=== PATIENT | male | born 1960 | race Caucasian/White ===

== ENCOUNTER 2019-12-28 01:49 | Inpatient (IN) | payer SELFPAY ==
[~2019-12-28] VITALS: Ht 193 cm; Wt 150.0 kg
[2019-12-28] VITALS (7 sets, daily range): BP systolic 118–170; BP diastolic 72–101; Ht 193 cm; Wt 150.0 kg
--- NOTE | ~2019-12-28 | HEMODYNAMI ---
PATIENT:ANNIA SCHMITT MEDICAL RECORD: [id number] : 56 LOCATION:[facility] D.2117 ADMISSION DATE: 12/28/19 Generatedon:12/28/201915:13 Patient name: ANNIA SCHMITT Patient #: [id number] SSN: [id number] B: 1960 Date of study: 12/28/2019 Page: Of Hemodynamic Procedure Report Patient Data Patient Demographics Procedure consent was obtained First Name: ANNIA Gender: Male Last Name: OSKAR : 1960 Patient #: [id number] Age: 59 year(s) Race: Unknown Additional ID: [id number] Contact details Address: [address] [place] [address] State: [place] City: [place] Zip code: [address] Past Medical History History of disease Date Diagnosis Comments CAD Allergies: No known allergies Admission Admission Data Admission Date: 12/28/2019 Admission Time: 3:00 Arrival Date: 12/28/2019 Arrival Time: 0:00 Room #: D.2117 Height (in.): 75.98 BSA: 2.74 (m2) Height (cm.): 193 BMI: 40.27 (kg/m2) Weight (lbs.): 330.7 Weight (kg.): 150 Lab Results Lab Result Date: 12/28/2019 Lab Result Time: 0:00 Biochemistry Name Units Result Min Max BUN mg/dl 18 --(---*)-- 7 18 Creatinine mg/dl 1.2 --(---*)-- 0.6 1.3 eGFR ml/min 64.31838 *-(----)-- 90 120 NONAFRICAN CBC Name Units Result Min Max Hematocrit % 44.9 --(*---)-- 42 54 Hemoglobin g/dl 14.7 --(-*--)-- 13.5 17.5 Procedure Procedure Types Cath Procedure Diagnostic Procedure LHC LHC w/Coronaries w/Grafts Sedation Charges Moderate Sedation up to 45 minutes PCI Procedure Coronary Stent Coronary Stent Initial Hemochron ACT Test Procedure Description Procedure Date Procedure Date: 12/28/2019 Procedure Start Time: 14:28 Procedure End Time: 15:10 Procedure Staff Name Function Jorge L Madison MD Performing Physician Shelia Stewart RT Monitor Miya High RT Scrub Selina Espinosa RN Nurse Procedure Data Cath Procedure Fluoroscopy Diagnostic fluoroscopy Total fluoroscopy Time: time: 10.1 min 10.1 min Diagnostic fluoroscopy Total fluoroscopy dose: dose: 2760 mGy 2760 mGy Contrast Material Contrast Material Type Amount (ml) Isovue 300 198 Entry Location Entry Primary Successful Side Size Upsize 1 Upsize Entry Closure Bowie ccessful Closure Location (Fr) (Fr) 2 (Fr) Remarks Device Remarks Femoral Right 5 Fr 6 Fr 6 Fr Exoseal artery Mid-Length Short Estimated blood loss: 10 ml Diagnostic catheters Device Type Used For End Catheter Placement MULTIPACK JL 4.0 5Fr Procedure catheter MULTIPACK 3DRC 5Fr Procedure catheter DIAGNOSTIC AR MOD 5Fr SVG Angiography Catheter ([id number]) MULTIPACK Pigtail 5 Fr Ventriculography catheter Procedure Complications No complications Procedure Medications Medication Administration Route Dosage 0.9% NaCl I.V. ml/hr Oxygen etCO2 Nasal cannula 2 l/min Lidocaine 2% added to field 20 Heparin Flush Bag added to field 2 bags (1000units/500ml NS) Versed I.V. 2 mg Fentanyl I.V. 50 mcg Fentanyl I.V. 50 mcg Versed I.V. 2 mg Heparin Bolus I.V. 5000 units Hemodynamics Rest BSA: 2.74 (m2) HGB: 14.7 (g/dl) O2 Consumption: Estimated: 331.36 (ml/min) O2 Co nsumption indexed: Estimated:120.93 (ml/min/m) Heart Rate: 80 (bpm) Pressure Samples Time Site Value (mmHg) Purpose Heart Use Rate(bpm) 15:03 LV 155/21,26 Snapshot 77 15:03 LV 155/20,25 Snapshot 76 Gradients Valve Time Site Site Mean SEP/DFP Peak To Heart Use 1 2 (mmHg) (sec/min) Peak Rate (mmHg) (bpm) Aortic 15:04 LV AO 76 Snapshots Pre Cath Intra NCS Post Cath Vital Signs Time Heart Resp SPO2 etCO2 NIBP (mmHg) Rhythm Pain Sedation Rate (ipm) (%) (mmHg) Status Level (bpm) 14:15:23 75 27 97 19 Measuring NSR 0 (11) 10(A) , No pain 14:15:58 80 14 96 29 181/103(116) NSR 0 (11) 10(A) , No pain 14:20:57 73 17 95 33 Measuring NSR 0 (11) 10(A) , No pain 14:22:21 73 19 96 35.2 Time NSR 0 (11) 10(A) Exceeded , No pain 14:27:44 74 19 98 34.5 137/79(112) NSR 0 (11) 10(A) , No pain 14:32:23 78 17 96 32.9 152/82(126) NSR 0 (11) 10(A) , No pain 14:37:06 81 16 96 40.4 156/85(114) NSR 0 (11) 10(A) , No pain 14:41:50 82 17 96 38.2 149/87(108) NSR 0 (11) 10(A) , No pain 14:46:31 83 17 96 36.7 148/78(105) NSR 0 (11) 10(A) , No pain 14:51:10 84 18 97 36.7 143/97(123) NSR 0 (11) 10(A) , No pain 14:55:52 88 20 97 39.7 157/83(124) NSR 0 (11) 10(A) , No pain 15:00:37 79 18 98 26.2 158/92(127) NSR 0 (11) 10(A) , No pain 15:05:22 76 20 97 35.9 153/91(133) NSR 0 (11) 10(A) , No pain 15:10:02 75 22 98 28.4 149/103(115) NSR 0 (11) 10(A) , No pain Medications Time Medication Route Dose Verified Delivered Reason Notes Effectiveness by by 14:13:39 0.9% NaCl I.V. ml/hr Jorge L Marks used for Gricelda Jesús procedure MD TERRAZAS 14:13:48 Oxygen etCO2 2 Jorge L Marks used for Nasal l/min GriceldaJohn Espinosa procedure cannula MD TERRAZAS 14:13:53 Lidocaine 2% added 20ml Jorge L Coats for local to vial [facility] anesthetic field MD CHOWDARY 14:13:59 Heparin Flush added 2 Jorge L Jorge L used for Bag to bags [facility] procedure (1000units/500ml field MD CHOWDARY NS) 14:16:22 Versed I.V. 2 mg Jorge L Selina for sedation [facility] Espinosa MD RN 14:16:31 Fentanyl I.V. 50 Jorge L Selina for sedation mcg [facility] Espinosa MD, RN 14:22:38 Fentanyl I.V. 50 Jorge L Selina for sedation mcg [facility] Espin[facility] MD, RN 14:22:44 Versed I.V. 2 mg Jorge L Selina for sedation [facility] Espin[facility] MD, RN 14:43:24 Heparin Bolus I.V. 5000 Jorge L Selina for verif ied units [facility] anticoagulation with Dr. CHOWDARY RN Diablo Procedure Log Time Note 13:43:10 Informed consent obtained and on chart 13:43:32 Procedure Status Urgent Heart Cath (IP). 13:43:33 Time tracking: Regular hours (M-F 7:00 - 5:00) 13:43:38 Plan of Care:Hemodynamics will remain stable., Cardiac rhythm will remain stable., Comfort level will be maintained., Respiratory function will remain adequate., Patient/ family verbilizes understanding of procedure., Procedure tolerated without complication., Recovers from procedure without complications.. 13:50:02 Miya High RT(R) sent for patient. Start room use. 13:50:06 H&P Date Dictated: 12/28/2019 ER History on chart.. 13:53:15 Patient allergic to No known allergies 13:53:55 Lab Result : BUN 18 mg/dl 13:53:55 Lab Result : eGFR NONAFRICAN 64.16829 ml/min 13:53:55 Lab Result : Creatinine 1.2 mg/dl 13:53:55 Lab Result : Hemoglobin 14.7 g/dl 13:53:55 Lab Result : Hematocrit 44.9 % 13:54:17 Patient Weight : 330.7 lbs 13:54:22 Patient Height : 75.98 inches 13:54:40 Arrival Date: 12/28/2019 12:00:00 AM 14:04:32 Is the patient allergic to Iodine/contrast media? No. 14:04:33 Was the patient premedicated? N/A 14:04:35 Is patient on blood thinner?No 14:04:39 ACC The patient was administered the following blood thiners within the last 24 hours: None 14:04:42 Patient diabetic? Yes. 14:04:44 If diabetic: On Metformin? Yes 14:06:00 If on Metformin: Last Dose? 12/27/2019 14:06:13 Patient received from Med II to CCL 1 Alert and oriented. Tansferred to table in Supine position. 14:08:21 Risk of Mortality: 0.1 14:08:25 Risk of blood transfusion: 0.1 14:08:28 Risk of RANDY: 0.4 14:08:51 Warm blankets applied, and vaishali hugger turned on for patient comfort. 14:08:52 Correct patient and procedure confirmed by team. 14:09:03 ECG and BP/O2 sat monitors applied to patient. 14:09:10 Previous problem with sedation/anesthesia? No ? 14:09:11 Snore? Yes 14:09:12 Sleep apnea? Yes 14:09:19 Deviated septum? No 14:09:20 Opens mouth fully? Yes 14:09:21 Sticks out tongue? Yes 14:09:27 Airway obstruction? Yes ASTHMA 14:09:30 Dentures? No ? 14:09:33 Pre-procedure instructions explained to patient. 14:09:34 Pre-op teaching completed and patient verbalized understanding. 14:09:37 Family unavailable. 14:09:39 Patient NPO since Midnight. 14:09:43 Full Disclosure recording started 14:09:55 Pre procedure: right dorsailis pedis pulse 1+ Palpable, but thready & weak; easily obliterated 14:09:58 Modified Filemon's test Radial < 7 seconds 14:10:01 Patient pain scale 0/10 ?. 14:10:12 IV patent on arrival in left forearm with 0.9% NaCl at KVO. 14:10:18 Lab results completed and on chart. 14:10:21 Stress Test: no; N/A ? 14:10:26 Right groin area was prepped with chlora-prep and draped in sterile fashion 14:10:28 Alarms reviewed by R. N. 14:10:28 Sharps counted by scrub and verified by R.N. 14:10:36 Use device set Femoral Dx 14:10:38 ACIST Syringe (84230) opened to sterile field. 14:10:38 Bag Decanter () opened to sterile field. 14:10:39 Medline Cath Pack ([id number]) opened to sterile field. 14:10:41 ACIST Hand Control (67518) opened to sterile field. 14:10:41 ACIST Manifold (75335) opened to sterile field. 14:10:42 DIAGNOSTIC Multipack 5Fr catheter set (GW9174) opened to sterile field. 14:10:45 SHEATH 5FR [place] (CDB639) opened to sterile field. 14:10:46 EMERALD Guide Wire (498-585) opened to sterile field. 14:11:00 ACC Patient presents with Non-STEMI CCS Anginal Class 2--Slight limitation of ordinary activity. 14:13:33 Vital chart was started 14:13:39 0.9% NaCl ml/hr I.V. was administered by Selina Espinosa RN; used for procedure; Verbal order read back and verified. 14:13:48 Oxygen 2 l/min etCO2 Nasal cannula was administered by Selina Espinosa RN; used for procedure; Verbal order read back and verified. 14:13:53 Lidocaine 2% 20ml vial added to field was administered by Jorge L Madison MD; for local anesthetic; Verbal order read back and verified. 14:13:59 Heparin Flush Bag (1000units/500ml NS) 2 bags added to field was administered by Jorge L Madison MD; used for procedure; Verbal order read back and verified. 14:15:38 Physician arrived 14:15:39 --------ALL STOP TIME OUT------ 14:15:39 Final Timeout: patient, procedure, and site verified with staff and physician. All members of the team are in agreement. 14:15:43 Right groin site verified by team. 14:15:48 Fire Safety Assessment: A--An alcohol-based skin anteseptic being used preoperatively., C--Open oxygen or nitrous oxide is being used., D--An ESU, laser, or fiber-optic light is being used. 14:15:55 Physical assessment completed. ASA score P 2 - A patient with mild systemic disease as per Jorge L Madison MD. 14:16:22 Versed 2 mg I.V. was administered by Selina Jesús RN; for sedation; Verbal order read back and verified. 14:16:25 2) 60-89 Mildly reduced kidney function, and other findings (as for stage 1) point to kidney disease. 14:16:31 Fentanyl 50 mcg I.V. was administered by Selina Espinosa RN; for sedation; Verbal order read back and verified. 14:16:41 Maximum allowable contrast dose (3.7 X eGFR X 0.75)180 ml. 14:16:48 Sedation plan: IV Moderate Sedation Medication:Versed, Fentanyl 14:22:38 Fentanyl 50 mcg I.V. was administered by Selina Espinosa RN; for sedation; Verbal order read back and verified. 14:22:44 Versed 2 mg I.V. was administered by Selina Espinosa RN; for sedation; Verbal order read back and verified. 14:23:35 Baseline sample Acquired. 14:26:00 Use device set Femoral Dx 14:26:03 Bag Decanter (2002S) opened to sterile field. 14:26:04 ACIST Syringe (16153) opened to sterile field. 14:26:05 Medline Cath Pack ([id number]) opened to sterile field. 14:26:07 ACIST Hand Control (66320) opened to sterile field. 14:26:07 ACIST Manifold (59387) opened to sterile field. 14:26:08 DIAGNOSTIC Multipack 5Fr catheter set (EG7061) opened to sterile field. 14:26:09 Tegaderm 4 x 4 (1626W) opened to sterile field. 14:26:11 SHEATH 5FR [place] (LJO347) opened to sterile field. 14:26:12 EMERALD Guide Wire (726-225) opened to sterile field. 14:27:47 Procedure started. 14:28:06 Local anesthetic to right femoral artery with Lidocaine 2% by Jorge L Madison MD.INITIAL ACCESS ONLY 14:28:18 A 5 Fr sheath was inserted into the Right Femoral artery 14:28:30 A MULTIPACK JL 4.0 5Fr catheter was advanced over the wire and used for Procedure. 14:28:42 j wire advanced. 14:29:41 LCA angiography performed. 14:30:35 Catheter removed. 14:31:05 A MULTIPACK 3DRC 5Fr catheter was advanced over the wire and used for Procedure. 14:31:10 RCA angiography performed. 14:33:07 SVG to Circ angiography performed. 14:39:19 A DIAGNOSTIC AR MOD 5Fr Catheter ([id number]) was advanced over the wire and used for SVG Angiography. 14:39:42 SVG to RCA angiography performed. 14:39:53 DIAZ to LAD angiography performed. 14:40:02 SHEATH 6FR Destination (RSR01) opened to sterile field. 14:40:03 SHEATH 6FR [place] (TCG805) opened to sterile field. 14:40:04 WHISPER 300cm guide wire ([id number]) opened to sterile field. 14:40:04 INFLATOR Merit BasixCompak (FV9290) opened to sterile field. 14:40:24 Catheter removed. 14:40:25 Catheter exchanged over wire. 14:40:26 Proceeding to intervention. 14:40:45 Sheath upsized to a 6 Fr Mid-Length. 14:42:29 AMPLATZ Super Stiff 75cm wire ([id number]) opened to sterile field. 14:42:40 AMPLATZ wire advanced. 14:42:48 6 Fr XBLAD guide catheter was inserted over the wire 14:43:24 Heparin Bolus 5000 units I.V. was administered by Selina Espinosa RN; for anticoagulation; verified with Dr. Dan Verbal order read back and verified. 14:45:48 6 Fr XBLAD.5 guide catheter was inserted over the wire 14:46:45 Guide Catheter removed. unable to cannulate vessel. 14:46:53 GUIDE 6FR XBLAD 4.0 catheter ([id number]) opened to sterile field. 14:47:32 6 Fr XBLAD4 guide catheter was inserted over the wire 14:52:00 Inflate balloon Inflation number: 1 A EMERGE OTW 2.5 x 12 balloon ([id number]) was prepped and advanced across the Dist LAD 80, then inflated to 10 ADELE for 0:23 (min:sec) 0. 14:52:48 Inflation number: 2 The EMERGE OTW 2.5 x 12 balloon ([id number]) was reinflated across the Dist LAD 0, to 10 ADELE for 0:17 (min:sec) . 14:54:54 Balloon removed over the wire. 14:57:54 Place stent Inflation Number: 3 A HECTOR RX 3.0 x 15 stent ([id number]) was prepped and advanced across the Dist LAD 80. The stent was deployed at 14 ADELE for 0:20 (min:sec) 0. 14:58:05 EXOSEAL 6Fr (EX600) opened to sterile field. 14:59:11 Stent catheter was removed intact over wire. 15:01:46 Place stent Inflation Number: 1 A HECTOR OTW 3.5 x 15 stent ([id number]) was prepped and advanced across the Mid LAD 80. The stent was deployed at 14 ADELE for 0:40 (min:sec) . 15:02:08 Stent catheter was removed intact over wire. 15:02:24 A MULTIPACK Pigtail 5 Fr catheter was advanced over the wire and used for Ventriculography. 15:02:32 LV gram done using CACERES 15:04:13 EF : 40 % 15:04:14 Catheter removed. 15:04:29 Sheath upsized to a 6 Fr Short. 15:04:29 Sheath removed intact; hemostasis achieved with Exoseal to the Right Femoral artery. 15:04:34 Procedure ended.(Physican Out) 15:04:47 Fluoroscopy time 10.10 minutes. 15:05:02 Flurop Dose total: 2760 15:05:02 Fluoroscopy dose: 2760 mGy 15:05:08 Dose Area Product 451673 mGy/cm. 15:05:14 Contrast amount:Isovue 300 198ml. 15:05:20 Maximum allowable dose exceeded? Yes. 15:05:27 Sharps counted by scrub and verified by R.N. 15:05:29 Insertion/operative site no bleeding no hematoma. 15:05:32 Post-op/insertion site Right Femoral artery dressed using a 4 x 4 and Tegaderm. 15:05:43 Post-procedure physical assessment completed. ASA score P 3 - A patient with severe systemic disease as per Jorge L Madison MD. 15:05:46 Post procedure rhythm: unchanged. 15:05:49 Estimated blood loss: 10 ml 15:05:51 Post procedure instruction explained to patient.Patient verbalizes understanding. 15:06:52 Procedure type changed to Cath procedure, Diagnostic procedure, LHC, LHC w/Coronaries w/Grafts, Sedation Charges, Moderate Sedation up to 45 minutes, PCI procedure, Coronary Stent, Coronary Stent Initial, Hemochron ACT Test 15:06:54 Procedure and supply charges have been captured, reviewed, submitted and are correct. 15:09:23 Procedure Complication : No complications 15:09:28 Vital chart was stopped 15:09:42 [facility] Findings: MVD- PCI performed (see procedure note) 15:09:51 Operative report dictated upon procedure completion. 15:09:55 See physician's report for complete and final results. 15:09:58 Report given to [facility]. 15:10:03 Patient transfered to [facility] with Bed. 15:10:05 Procedure ended. 15:10:05 Full Disclosure recording stopped 15:10:09 End room use (Document Last) 15:10:14 ACC-PCI Only Patient was given prescriptions, or instructed by Jorge L Madison MD to start/continue the following medications upon discharge: Plavix 15:12:25 ACT drawn and resulted at 214 seconds. (normal therapeutic range 180-240 seconds). Intervention Summary Intervention Notes Time ActionType Lesion and Equipment Used Action# Pressure Duration Attributes 14:52:00 Inflate Dist LAD EMERGE OTW 2.5 1 10 00:23 balloon x 12 balloon ([id number]) 14:52:48 Reinflate Dist LAD EMERGE OTW 2.5 2 10 00:17 balloon x 12 balloon ([id number]) 14:57:54 Place stent Dist LAD HECTOR RX 3.0 x 3 14 00:20 15 stent ([id number]) 15:01:46 Place stent Mid LAD HECTOR OTW 3.5 x 1 14 00:40 15 stent ([id number]) Device Usage Item Name Manufacture Quantity Catalog Number Hospital Part Current Minimal Lot# / Charge Number Stock Stock Serial# Code ACIST Syringe Acist 2 69893 646639 495420 129662 20 (76456) Medical Systems Inc Bag Decanter Microtek 2 2001S 493609 90517 409199 5 () Medical Inc. Medline Cath Medline 2 [id number] 066106 35074 817904 5 Pack ([id number]) ACIST Hand Acist 2 24796 237148 722789 545666 5 Control Medical (20427) Systems Inc ACIST Manifold Acist 2 74816 615006 378810 148723 5 (44835) Medical Systems Inc DIAGNOSTIC Cardinal 2 [id number] 295804 30219 434260 30 Multipack 5Fr Health catheter set (QS0633) SHEATH 5FR Terumo 2 IJN632 337215 504524 489258 5 [place] (AXV477) EMERALD Guide Cardinal 2 502-455 871002 271033 281730 5 Wire (502-455) Health Tegaderm 4 x 4 3M 1 1626W 031295 837885 110530 5 (1626W) MULTIPACK JL Cardinal 1 115148 5 4.0 5Fr Health catheter MULTIPACK 3DRC Cardinal 1 541148 5 5Fr catheter Health DIAGNOSTIC AR Cardinal 1 [id number] 756188 108658 926755 15 MOD 5Fr Health Catheter (163616K) SHEATH 6FR Terumo 1 RSR01 121352 00667 013678 5 Destination (RSR01) SHEATH 6FR Terumo 1 GCP416 959113 055189 166938 40 [place] (XVN317) WHISPER 300cm Vargas 1 [id number] 972262 687058 154284 5 guide wire Vascular ([id number]) INFLATOR Merit Merit 1 EA3760 788486 859708 538070 15 [facility] (CQ2549) AMPLATZ Super [place] 1 [id number] 603228 918120 963034 5 Stiff 75cm Scientific wire ([id number]) GUIDE 6FR Cardinal 1 25120161 413346 211807 723047 3 XBLAD 4.0 Health catheter (48586985) EMERGE OTW 2.5 [place] 1 [id number] 547905 263703 212280 5 [id number] x 12 balloon Scientific ([id number]) HECTOR RX 3.0 x Medtronic 1 [id number] 334262 1109404 799950 5 [id number] 15 stent ([id number]) EXOSEAL 6Fr Cardinal 1 EX600 229490 126994 895551 10 (EX600) Health HECTOR OTW 3.5 x Medtronic 1 [id number] 297910 0347002 710687 5 [id number] 15 stent ([id number]) MULTIPACK Cardinal 1 965292 5 Pigtail 5 Fr Health catheter Signature Audit [place] Stage Time Signature Unsigned Intra-Procedure 12/28/2019 Shelia Stewart 3:10:36 PM RT(R) Intra-Procedure 12/28/2019 Selina Espinosa 3:10:58 PM RN Intra-Procedure 12/28/2019 Jorge L Fraser 3:13:[address] [facility] [address] [place] [address]
[2019-12-28] MEDS ORDERED: GLUCOPHAGE500 MG PO (04:22)
--- NOTE | 2019-12-28 07:30 | NUR ---
REPORT RECIEVED. PT SITTING SEMI FOWLERS. RR EVEN AND UNLABORED ON RA. HE HAS A L AC PIV THAT IS SL. BED LOCKED AND IN LOWEST POSITION, CALL LIGHT WITHIN REACH. WILL CTM
[2019-12-28 08:46] LABS: ANION GAP 11.5 mmol/L (8-16); CALCIUM 8.4 mg/dL (8.5-10.1); CARBON DIOXIDE 26.4 mmol/L (21.0-32.0); CHOL - HDL RATIO 4.8 ratio (2.3-4.9); CREATININE - SERUM 1.2 mg/dL (0.6-1.3); HEMATOCRIT 44.9 % (42.0-54.0); HEMOGLOBIN 14.7 g/dL (13.5-17.5); LDL-HDL RATIO 3.2 ratio (1.5-3.5); LYMPHOCYTES 21.7 % (15-50); MCH 30.2 pg (26.0-34.0); MCHC 32.7 g/dL (31.0-37.0); MCV 92.4 fL (80.0-100.0); MEAN PLATELET VOLUME 10.9 fL (7.4-10.4); PLATELET COUNT 180 10x3/uL (130-400); POTASSIUM - SERUM 3.9 mmol/L (3.5-5.1); RBC 4.86 10x6/uL (4.20-6.10); RDW 14.2 % (11.5-14.5); WBC 8.7 10x3/uL (4.8-10.8)
--- NOTE | 2019-12-28 16:09 | CN ---
PATIENT NAME:ANNIA SCHMITT MEDICAL RECORD: [id number] : 56 LOCATION:D. D.2117 ADMIT DATE: 12/28/19 ACCOUNT: [id number] CONSULTING PHYSICIAN: FRANCI MCKEON MD REFERRING PHYSICIAN: FRANCI MCKEON MD DATE OF CONSULTATION: 12/28/2019 HISTORY OF PRESENT ILLNESS: A 59-year-old gentleman with a history of coronary artery disease, status post coronary artery bypass grafting times 3, had stenting prior to this, has been without his medications for approximately 2 weeks, had onset yesterday of chest tightness, pressure, this was while driving his truck. Mitigating factors are air conditioner out in his truck and he has been without his medication for 2 weeks. Tried to drink some fluids, stayed at home, pressure became more intense, finally presented to [facility] and found to have elevated troponin consistent with NSTEMI. He is referred here for further evaluation. PAST MEDICAL HISTORY: Includes; 1. History of hypertension. 2. Hyperlipidemia. 3. Diabetes mellitus. 4. Coronary artery disease as described above. ALLERGIES: None known. 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 Nonsmoker, nondrinker. Easily takes of all his ADLs. REVIEW OF SYSTEMS: The patient reports easy bruising but reports no swollen glands. The patient reports no fever, no night sweats, no significant weight gain, no significant weight loss. No significant exercise tolerance. The patient reports no dry eyes, no irritation, no vision change. Patient reports no difficulty hearing and no ear pain. Patient reports no frequent nose bleeds or nose and sinus problems. Patient reports on arm pain on exertion. No shortness of breath while lying down. No history of heart murmur. Patient reports no cough, no wheezing or coughing up blood. Patient reports no abdominal pain, no vomiting. Normal appetite. No diarrhea and not vomiting blood. No nausea and no constipation. Patient reports no incontinence. No difficulty urinating. No hematuria. No increased frequency. Patient reports no muscle aches. No weakness, no arthralgias, no back pain. No swelling of the extremities. Patient reports no abnormal mole, no jaundice, no rashes. Reports no loss of consciousness. No weakness and no numbness. No seizures, dizziness, or headaches. The patient reports no depression, no sleep disturbance, feeling safe in a relationship and no alcohol abuse. Patient reports on fatigue. Reports no runny nose or sinus pressure. No itching, no hives, and no frequent sneezing. PHYSICAL EXAMINATION: GENERAL: Pleasant. No acute distress, appears stated age. VITAL SIGNS: Blood /55, pulse 77 and regular. HEENT: Normocephalic and atraumatic. NECK: No JVD or bruit. HEART: Regular. LUNGS: High clear. ABDOMEN: Soft, nontender. CONSULT REPORT [id number] ANNIA SCHMITT EXTREMITIES: Pulses 2+ with no edema. DIAGNOSTIC DATA: EKG is normal. IMPRESSION: Non-ST elevation myocardial infarction, known history of disease, out of medications for 2 weeks. PLAN: At this point in time, plan for angiography, intervention based on the above. TRANSINT:[id number] Voice Confirmation ID: [id number] DOCUMENT ID: [id number] FRANCI MCKEON MD at 1609 CC: [id number] DICTATION DATE: 12/28/19837 PRECISION OPTICS TECHNICIAN: 12/28/19 0916 [facility] [place] [address] [place] [address]
[2019-12-29] VITALS: BP 140/76
--- NOTE | 2019-12-29 11:04 | NUR ---
PT DISCHARGED HOME VIA WHEELCHAIR. PIV REMOVED WITH CATHETER TIP FULLY INTACT. PT SIGNED PROPER DISCHARGE INSTRUCTIONS AND REMOVED ALL VALUABLES FROM THE ROOM.
--- NOTE | 2019-12-29 12:30 | OP ---
PATIENT NAME: ANNIA SCHMITT MEDICAL RECORD: [id number] :56 LOCATION:D.M2 D.2117 ADMISSION DATE:12/28/19 SURGEON: FRANCI MCKEON MD DATE OF OPERATION: 12/28/2019 PROCEDURE: Left heart catheterization, selective coronary angiography, right femoral artery approach. CATHETERS: A 5-Arabic sheath, 5/4 left and right Jorge, 5/4 pig. The procedure was well tolerated and the patient returned to [place], sheath removed. ExoSeal device placed. FINDINGS: Left ventriculography in 30-degree CACERES view shows mild anterior apical hypokinesis. Overall function is reduced at 40% to 45%. CORONARY ANATOMY: LEFT MAIN: Left main is free of disease. LAD: Distal subtotal stenosis 90% or better. The more proximally has 80% complex stenosis, obviously infarct-related artery. CIRCUMFLEX: Fills for a short period of time and is totally occluded. RIGHT CORONARY ARTERY: Fills down with PDA and is totally occluded. BYPASS GRAFTS: Bypass graft to the circumflex and down the distal right PDA free of disease. DIAZ fills for a short period of time and is totally occluded. PLAN: Intervention to LAD momentarily. DESCRIPTION OF PROCEDURE: A 5-Arabic sheath was exchanged for a long 6-Arabic sheath followed by XB LAD 4 curved guiding catheter followed by 300 cm Whisper wire placed both across the 90% plus stenosis, 80% stenosis in the LAD down this portion of vessel. Pre-deployment balloon was a 2.0 x 15 mm [place] balloon pre-deployment. Then, using the balloon as an exchange catheter, we exchanged the Whisper wire for a PT export wire. Stents deployed in the following fashion: A 3.0 x 15, a 3.5 x 15 were placed in the distal and mid LAD. Final angiography shows excellent resolution of 80% stenosis as well 90% stenosis. No significant residual. RAJ flow was 3 throughout the procedure. Sheath was closed with ExoSeal device. Plavix was loaded in the lab. The patient has been out of medication. He will be started on ARB, beta blockade, statin, and Plavix. NTS:[id number] Voice Confirmation ID: [id number] DOCUMENT ID: [id number] FRANCI MCKEON MD at 1230 CC: [id number] DICTATION DATE: 12/28/19 1523 BE[employer] LIFEGUARD: 12/28/19 1818 DIS IN 12/29/19 [place] [id number] [place] [id number]
--- NOTE | 2019-12-29 12:30 | DS ---
PATIENT:ANNIA CSHMITT :56 MEDICAL RECORD: [id number] DISCHARGE SUMMARY ADMISSION DATE: 12/28/19 DISCHARGE DATE: 12/29/19 DATE OF ADMISSION: 12/27/2019. DATE OF DISCHARGE: 12/28/2019. IMPRESSION: 1. Non-ST elevation myocardial infarction. 2. Known history of coronary artery disease status post bypass grafting. 3. Hypertension. 4. Hyperlipidemia. 5. Diabetes mellitus. BRIEF HISTORY AND HOSPITAL COURSE: Admitted as transfer from [place] with NSTEMI. He had been out of medications for 2 weeks secondary to inability to get to his physician's office secondary to work. He was found to have an occluded DIAZ to LAD. Subsequently, he underwent intervention of the [place] LAD. He was started back on ARB, beta blockade, statin therapy, as well as Plavix. Scripts were provided. 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 ACTIVITY: As tolerated. DIET: 1800 calorie ADA diet. TRANSINT:[id number] Voice Confirmation ID: [id number] DOCUMENT ID: [id number] FRANCI MCKEON MD at 1230 CC: [id number] DICTATION DATE: 12/28/19 1524 [employer] MA[employer]GER: 12/29/19 0127 DIS IN 12/29/19 [place] [id number] [place] [id number]
== END 2019-12-29 11:04 | disposition home or self-care (01) | DRG 247 ==
LOC: D.ER 01:49 → D.M2 03:00
PROVIDERS: ADMIT Internal Medicine Interventional Cardiology; ATTEND Internal Medicine Interventional Cardiology
PROC: B2111ZZ Fluoroscopy of Multiple Coronary Arteries using Low Osmolar Contrast (ICD-10-PCS; 2019-12-28)
PROC: B2151ZZ Fluoroscopy of Left Heart using Low Osmolar Contrast (ICD-10-PCS; 2019-12-28)
PROC: 027035Z Dilation of Coronary Artery, One Artery with Two Drug-eluting Intraluminal Devices, Percutaneous Approach (ICD-10-PCS; principal; 2019-12-28 13:50)
PROC: 4A023N7 Measurement of Cardiac Sampling and Pressure, Left Heart, Percutaneous Approach (ICD-10-PCS; 2019-12-28 13:50)
DX: I21.4 Non-ST elevation (NSTEMI) myocardial infarction (principal); I10 Essential (primary) hypertension; E78.5 Hyperlipidemia, unspecified; E11.69 Type 2 diabetes mellitus with other specified complication; I25.10 Atherosclerotic heart disease of native coronary artery without angina pectoris